=== PATIENT | female | born 1965 | race Two or more races ===

== ENCOUNTER 2018-02-14 21:57 | Emergency (ER) | payer MEDICAID ==
[2018-02-14 22:14] VITALS: RESP 16; O2SAT 97
--- NOTE | 2018-02-14 23:44 | ED PDOC ---
Lower Extremity Pain/Injury Time Seen by Provider: 02/14/18 22:35 Chief Complaint (Nursing): Lower Extremity Problem/Injury Chief Complaint (Provider): Lower Extremity Problem/Injury History Per: Patient History/Exam Limitations: no limitations Onset/Duration Of Symptoms: Gradual (x1 week) Current Symptoms Are (Timing): Still Present Additional Complaint(s): 52 year old [place] female arrives to ED with a complaint of swelling, redness, and pain with walking to her left foot that has gradually worsen in the last week. Patient believes she may have sustained insect bites while in a car and prescribed Bactrim, Bactroban, and Ibruprofen by her PMD with minimal impr ovement. Additionally, she reports an old surgical scar on her left hip developed some redness with pain as her affect foot began blistering. Otherwise, she denies any fever, chills, or drainage from surgical site. PMD: Dr. Donny Schilling Past Medical History Reviewed: Historical Data, Nursing Documentation, Vital Signs Vital Signs: Last Vital Signs Temp 97.6 F 02/14/18 22:14 Pulse 75 02/14/18 22:14 Resp 16 02/14/18 22:14 BP 134/86 02/14/18 22:14 Pulse Ox 97 02/14/18 22:14 - Medical History PMH: No Chronic Diseases - Surgical History Surgical History: Denies: No Surg Hx Other surgeries: left hip - Family History Family History: States: Unknown Family Hx - Social History Current smoker - smoking cessation education provided: No Alcohol: None Drugs: Denies - Home Medications Home Medications: Ambulatory Orders Medication Instructions Recorded Clotrimazole/Betamethasone 45 gm EXT BID #1 tube 02/15/18 [Lotrisone] - Allergies Allergies/Adverse Reactions: Allergies Allergy/AdvReac Type Severity Reaction Status Date / Time No Known Allergies Allergy Verified 02/14/18 22:17 Review of Systems ROS Statement: Except As Marked, All Systems Reviewed And Found Negative Constitutional: Negative for: Fever, Chills Musculoskeletal: Positive for: Foot Pain (left-sided with edema, blisters and redness), Other (left surgical scar with redness and pain on left hip (-) discharge) Physical Exam - Reviewed Nursing Documentation Reviewed: Yes Vital Signs Reviewed: Yes - Physical Exam Appears: Positive for: Non-toxic, No Acute Distress Head Exam: Positive for: ATRAUMATIC, NORMAL INSPECTION, NORMOCEPHALIC Skin: Positive for: Normal Color Eye Exam: Positive for: Normal appearance Cardiovascular/Chest: Positive for: Regular Rate, Rhythm Respiratory: Positive for: Normal Breath Sounds. Negative for: Respiratory Distress Pulses-Dorsalis Pedis (L): 2+ Gastrointestinal/Abdominal: Positive for: Other (11cm dimpled scar on left hip surface with mild erythema on surgical margin (-) fluctance or (-) wamrth) Extremity: Positive for: Other (left foot erythema, warmth, and induration with blisters on dorsum aspect; 2nd to 4th left foot digits with edema and erythema;). Negative for: Tenderness (or drainage/fluctance of left foot) Neurologic/Psych: Positive for: Alert, Oriented (x3). Negative for: Motor/Sensory Deficits - Laboratory Results Result Diagrams: 02/14/18 23:52 02/14/18 23:52 - ECG O2 Sat by Pulse Oximetry: 97 (RA) Pulse Ox Interpretation: Normal Medical Decision Making Medical Decision Making: Initial Impression: 52 year old [place] female with cellulitis of left foot; possible old surgical scar infection Initial Plan: * Labs * Toradol 30mg IV * Blood culture * Accucheck * XR left foot * XR left hip Time: 0010 --Patient was evaluated and cleared by podiatry. Most likely to be fungal related. Recommends Rx for Lotrisone. --XR of left hip and foot interpreted by provider: no fractures noted. Labs reviewed: no significant clinical abnormality. Accucheck: 82. Time: 0025 --Upon provider reevaluation, patient is medically stable and requires no further treatment in the ED at this time. Counseling was provided and all quest ions were answered regarding diagnosis and need for follow up with her PMD in 1- 2 days. There is agreement to discharge plan. Return if symptoms persist or worsen. Clinical Impression: Tinea Pedis Scribe Attestation: Documented by Elizabeth Khan, acting as a scribe for Tariq Delgadillo MD. Provider Scribe Attestation: All medical record entries made by the Scribe were at my direction and personally dictated by me. I have reviewed the chart and agree that the record accurately reflects my personal performance of the history, physical exam, medical decision making, and the department course for this patient. I have also personally directed, reviewed, and agree with the discharge instructions and disposition. Disposition - Clinical Impression Clinical Impression: Tinea pedis - Patient ED Disposition Is Patient to be Admitted: No Counseled Patient/Family Regarding: Studies Performed, Diagnosis, Need For Followup, Rx Given - Disposition Disposition: Routine/Home Disposition Time: 00:25 Condition: STABLE Prescriptions: Clotrimazole/Betamethasone [Lotrisone] 45 gm EXT BID #1 tube Instructions: Athlete's Foot, Ringworm Forms: [facility] (Setswana)
[2018-02-15 00:09] LABS: BASO % 0.6 % (0.0-2.0); EOS # 0.2 K/uL (0.0-0.7); EOS % 2.4 % (0.0-4.0); HEMOGLOBIN 12.5 g/dL (12.0-16.0); LYMPH # 2.3 K/uL (1.0-4.3); MEAN CELL VOLUME 91.9 fl (81.0-99.0); MEAN CORPUSCULAR HEMOGLOBIN 30.7 pg (27.0-31.0); MEAN CORPUSCULAR HGB CONC 33.4 g/dL (33.0-37.0); MEAN PLATELET VOLUME 8.2 fl (7.2-11.7); MONO # 0.4 K/uL (0.0-0.8); MONO % 5.4 % (0.0-10.0); NEUT # 4.1 K/uL (1.8-7.0); NEUT % 58.6 % (50.0-75.0); RBC 4.06 Mil/uL (3.80-5.20); RED CELL DISTRIBUTION WIDTH 13.8 % (11.5-14.5)
[2018-02-15] MEDS ORDERED: Povidone Iodine Oint 10% Foilpak UD ONE (00:13)
[2018-02-15 00:18] LABS: ALB/GLOB RATIO 1.1 (1.0-2.1); ALBUMIN 4.4 g/dL (3.5-5.0); ALT/SGPT 27 U/L (9-52); AST/SGOT 29 U/L (14-36); BLOOD UREA NITROGEN 24 mg/dl (7-17); CALCIUM 9.1 mg/dL (8.4-10.2); GFR NON-AFRICAN AMERICAN > 60
[2018-02-15 00:31] LABS: SQUAMOUS EPITHIAL 1 /hpf (0-5); URINE BILIRUBIN NEGATIVE (NEGATIVE); URINE BLOOD MODERATE (NEGATIVE); URINE CLARITY SLIGHTY-CLOUDY (Clear); URINE COLOR YELLOW (YELLOW); URINE GLUCOSE (UA) NEG (Normal); URINE LEUKOCYTE ESTERASE NEG Leu/uL (Negative); URINE PROTEIN NEGATIVE (NEGATIVE); URINE UROBILINOGEN 0.2-1.0 mg/dL (0.2-1.0)
[2018-02-15 00:32] LABS: URINE HYALINE CAST 0-2 /hpf (0-2)
--- NOTE | 2018-02-15 00:36 | CP.PCM.CON ---
History of Present Illness - History of Present Illness History of Present Illness: Podiatry Consult Note for Dr. Jules: 52 yo female patient, seen and evaluated for pain to her L foot. Patient states that she was walking last week and began to feel pain to her foot. She noticed a rash to the top of her left foot that was itchy. Patient believes she may have sustained insect bites while in a car and prescribed Bactrim, Bactroban, and Ibruprofen by her PMD with minimal improvement. Over the course of a week the pain got worse and she cannot wear any socks or shoes that rub on the area without feeling pain. She continuously wears open toed sandals. Patient denies N/V/F. Review of Systems - Constitutional Constitutional: As Per HPI Past Patient History - Past Social History Alcohol: None Drugs: Denies Meds Home Medications: Home Medication List Medication Instructions Recorded Confirmed Type Clotrimazole/Betamethasone 45 gm EXT BID #1 tube 02/15/18 Rx [Lotrisone] Allergies/Adverse Reactions: Allergies Allergy/AdvReac Type Severity Reaction Status Date / Time No Known Allergies Allergy Verified 02/14/18 22:17 Physical Exam - Constitutional Appears: Well, Non-toxic, No Acute Distress - Head Exam Head Exam: ATRAUMATIC, NORMOCEPHALIC - Extremities Exam Additional comments: LLE focused exam: Vascular: DP/PT 2/4, CFT <3 seconds, TG warm to warm, mild edema to the L forefoot Ortho: Tenderness/pain upon palpation of rash located to dorsal aspect of L foot, MMT 5/5 in all compartments, no pain upon calf compression Neuro: Gross and protective sensation intact Derm: Erythematous, scaling and xerotic rash noted to the dorsal aspect of the L forefoot to digits 2,3. No drainage, open lesion appreciated. Interdigital maceration to the 2nd interspace on the L. No cellulitis, no clinical signs of infection - Neurological Exam Neurological exam: Alert, Oriented x3 - Psychiatric Exam Psychiatric exam: Normal Affect, Normal Mood Results - Vital Signs Recent Vital Signs: Last Vital Signs Temp 97.6 F 02/14/18 22:14 Pulse 75 02/14/18 22:14 Resp 16 02/14/18 22:14 BP 134/86 02/14/18 22:14 Pulse Ox 97 02/15/18 00:27 - Labs Result Diagrams: 02/14/18 23:52 02/14/18 23:52 Labs: Laboratory Results - last 24 hr 02/14/18 02/14/18 23:52 23:52 WBC 7.0 RBC 4.06 Hgb 12.5 Hct 37.3 MCV 91.9 MCH 30.7 MCHC 33.4 RDW 13.8 Plt Count 322 MPV 8.2 Neut % (Auto) 58.6 Lymph % (Auto) 33.0 [place] % (Auto) 5.4 Eos % (Auto) 2.4 Baso % (Auto) 0.6 Neut # (Auto) 4.1 Lymph # (Auto) 2.3 [place] # (Auto) 0.4 Eos # (Auto) 0.2 Baso # (Auto) 0.0 Sodium 139 Potassium 4.2 Chloride 110 H Carbon Dioxide 18 L Anion Gap 15 BUN 24 H Creatinine 0.5 L Est GFR ( Amer) > 60 Est GFR (Non-Af Amer) > 60 Random Glucose 104 Calcium 9.1 Total Bilirubin 0.3 AST 29 ALT 27 Alkaline Phosphatase 64 Total Protein 8.3 H Albumin 4.4 Globulin 3.9 Albumin/Globulin Ratio 1.1 Assessment & Plan - Assessment and Plan (Free Text) Assessment: 52 yo female patient, seen and evaluated for pain to her L foot r/o bug bite vs tinea pedis Plan: Patient seen and evaluated Discussed patient in detail with Dr. Juels Afebrile, absent leuckocytosis Patient prescribed Lotrisone cream and told to apply twice daily Advised to continue with Abx, mupirocin ointment, and ibuprofen as prescribed by her PCP Discussed the possibility of contact dermatitis from sandals, since the strap of her sandals lies directly across area of irritation, discontinue use of sandals until area of irritation resolves Local wound care to L forefoot: Mupirocin, DSD - advised to keep covered at all times Thank you for the consult - Date & Time Date: 02/15/18 Time: 00:36
[2018-02-15 04:52] VITALS: BP 138/87; PULSE 70; TEMP 98.1
--- NOTE | 2018-02-15 11:09 | RAD ---
Date of service: 02/14/2018 PROCEDURE: Left Foot Radiographs. HISTORY: foot swelling pain COMPARISON: None. FINDINGS: BONES: Normal. No fracture.. There is a small plantar surface calcaneal enthesophyte. Very tiny posterior calcaneal enthesophyte also noted JOINTS: Minor degenerative osteoarthritis first MTP joint SOFT TISSUES: Normal. OTHER FINDINGS: None. IMPRESSION: No evidence of acute displaced fracture nor dislocation. Minor degenerative changes 1st MTP joint..
--- NOTE | 2018-02-16 08:03 | RAD ---
Date of service: 02/14/2018 PROCEDURE: LEFT HIP WITH PELVIS RADIOGRAPHS HISTORY: pain COMPARISON: None available. TECHNIQUE: Frontal views the left hip and pelvis been submitted for interpretation as well as frog-leg lateral view left hip. FINDINGS: There is no fracture dislocation identified at the left hip joint. The pelvic ring is intact. Limited degenerative change are present the bilateral sacroiliac and hip joints. Pubic bones are intact including pubic symphysis. Iliac bones appear unremarkable as the sacrum including sacral arcades. The proximal left femur is deformed with thin disc cortical margins in the periphery from the level of the intertrochanteric space to the visualize mid diaphysis.. The etiology of this finding is unclear. Further, the contour of the proximal left left femurs borders is also straight rather than gently curved as one approaches the lesser trochanter as the contralateral right femur exhibits. Etiologies findings unclear. This may be postoperative or posttraumatic appearance. Clinically correlate further. IMPRESSION: No acute fracture dislocation left hip joint or the pelvic ring. Degenerative changes are mild at the bilateral sacroiliac and hip joints. A deformity of the proximal left femur is identified throughout the diaphysis as imaged. Consider possible nuclear bone scan or left femur MRI for added characterization, if not already evaluated.
== END 2018-02-15 00:55 | disposition home or self-care (01) ==
LOC: H.ER 21:57
DX: B35.3 Tinea pedis (principal)
CPT/HCPCS: 73502; 73630; 80053; 81003; 81025; 82948; 85025; 87040; 96374; 99284; J1885

== ENCOUNTER 2018-02-16 11:14 | Emergency (ER) | payer MEDICAID ==
[2018-02-16 11:26] VITALS: BMI 35.2
[2018-02-16 11:36] VITALS: RESP 16
[2018-02-16] MEDS ORDERED: Sodium Chloride 0.9% 1,000 ML IV STA (15:20)
[2018-02-16 15:45] LABS: BASO % 0.6 % (0.0-2.0); EOS # 0.2 K/uL (0.0-0.7); EOS % 4.3 % (0.0-4.0); HEMOGLOBIN 13.4 g/dL (12.0-16.0); LYMPH # 1.5 K/uL (1.0-4.3); LYMPH % 33.1 % (20.0-40.0); MEAN CELL VOLUME 91.8 fl (81.0-99.0); MEAN CORPUSCULAR HGB CONC 33.8 g/dL (33.0-37.0); MEAN PLATELET VOLUME 7.8 fl (7.2-11.7); MONO # 0.3 K/uL (0.0-0.8); MONO % 6.8 % (0.0-10.0); NEUT # 2.5 K/uL (1.8-7.0); NEUT % 55.2 % (50.0-75.0); NRBC % 0.1 % (0.0-0.0); RBC 4.31 Mil/uL (3.80-5.20); RED CELL DISTRIBUTION WIDTH 13.7 % (11.5-14.5); WHITE BLOOD COUNT 4.5 K/uL (4.8-10.8)
[2018-02-16] MEDS ORDERED: Povidone Iodine Topical 10% Sol ONE (16:35)
--- NOTE | 2018-02-16 16:35 | ED PDOC ---
HPI: Skin/Bite Injury Time Seen by Provider: 02/16/18 12:14 Chief Complaint (Nursing): Abnormal Skin Integrity Chief Complaint (Provider): Redness of left foot getting worse History Per: Patient History/Exam Limitations: no limitations Onset/Duration Of Symptoms: Days Current Symptoms Are (Timing): Still Present Quality Of Symptoms: Painful, Itching Additional Complaint(s): Pt was seen in ER 2 days ago for evaluation of redness on the right foot. Pt was taking bactrim at that time and states she is on day 10. Pt states the rash is worse. 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 PT states today she also has rash under breast. Pt states she has taken bactrim in the past with out issues. Rash under breast itchy. No similar in the past. Past Medical History Vital Signs: Last Vital Signs Temp 98 F 02/16/18 11:33 Pulse 72 02/16/18 11:33 Resp 16 02/16/18 11:33 BP 144/79 02/16/18 11:33 Pulse Ox 98 02/16/18 11:33 - Family History Family History: States: Unknown Family Hx - Home Medications Home Medications: Ambulatory Orders Medication Instructions Recorded Clotrimazole/Betamethasone 45 gm EXT BID #1 tube 02/15/18 [Lotrisone] Amoxicillin/Clavulanate [Augmentin 1 tab PO BID #20 tab 02/16/18 875 MG-125 MG] Clotrimazole 1% Cream [Lotrimin 1% 1 applic TOP BID #2 tube 02/16/18 CREAM] DiphenhydrAMINE [Benadryl] 50 mg PO Q6H PRN #20 cap 02/16/18 predniSONE [predniSONE Tab] 20 mg PO DAILY #12 tab 02/16/18 - Allergies Allergies/Adverse Reactions: Allergies Allergy/AdvReac Type Severity Reaction Status Date / Time No Known Allergies Allergy Verified 02/14/18 22:17 Review of Systems ROS Statement: Except As Marked, All Systems Reviewed And Found Negative Constitutional: Negative for: Fever, Chills Skin: Positive for: Rash Physical Exam - Reviewed Nursing Documentation Reviewed: Yes Vital Signs Reviewed: Yes - Physical Exam Appears: Positive for: Well, Non-toxic, No Acute Distress Head Exam: Positive for: ATRAUMATIC, NORMAL INSPECTION, NORMOCEPHALIC Skin: Positive for: Warm. Negative for: Normal Color (Erythematous rash with satelite lesion under bilateral breasts; (+) erythematous rash on the dorsal foot extending up ankle) Eye Exam: Positive for: Normal appearance ENT: Positive for: Normal ENT Inspection Neck: Positive for: Normal, Painless ROM Cardiovascular/Chest: Positive for: Regular Rate, Rhythm. Negative for: Chest Non Tender Respiratory: Positive for: Normal Breath Sounds. Negative for: Accessory Muscle Use, Respiratory Distress Back: Positive for: Normal Inspection Extremity: Positive for: Normal ROM Neurologic/Psych: Positive for: Alert, Oriented - Laboratory Results Result Diagrams: 02/16/18 15:30 02/16/18 15:30 - ECG O2 Sat by Pulse Oximetry: 98 Medical Decision Making Medical Decision Making: Rash under breast consistant with yeast - Clotrimazole cream Rash on foot - Use topical cream from previous visit and change antibiotic as per podiatry. WBC normal. Prednisone and benadryl for possible allergic reaction. Disposition - Clinical Impression Clinical Impression: Yeast infection of the skin, Allergic reaction - Patient ED Disposition Is Patient to be Admitted: No Counseled Patient/Family Regarding: Diagnosis, Need For Followup - Disposition Disposition: Routine/Home Disposition Time: 16:34 Condition: GOOD Prescriptions: Amoxicillin/Clavulanate [Augmentin 875 MG-125 MG] 1 tab PO BID #20 tab Clotrimazole 1% Cream [Lotrimin 1% CREAM] 1 applic TOP BID #2 tube DiphenhydrAMINE [Benadryl] 50 mg PO Q6H PRN #20 cap PRN Reason: Itching / Pruritus predniSONE [predniSONE Tab] 20 mg PO DAILY #12 tab Instructions: Yeast Infection (DC), Drug Allergy Forms: [employer] (Indonesian)
[2018-02-16 16:36] LABS: ALB/GLOB RATIO 1.1 (1.0-2.1); ALBUMIN 4.6 g/dL (3.5-5.0); ALT/SGPT 33 U/L (9-52); AST/SGOT 31 U/L (14-36); BLOOD UREA NITROGEN 17 mg/dl (7-17); CALCIUM 10.4 mg/dL (8.4-10.2); GFR NON-AFRICAN AMERICAN > 60
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
[2018-02-16 17:13] VITALS: BP 138/76; PULSE 68; TEMP 98.1; O2SAT 99
== END 2018-02-16 17:15 | disposition home or self-care (01) ==
LOC: H.ER 11:14
DX: L97.529 Non-pressure chronic ulcer of other part of left foot with unspecified severity (principal); T78.40XA Allergy, unspecified, initial encounter; Z79.899 Other long term (current) drug therapy; Z98.890 Other specified postprocedural states
CPT/HCPCS: 80053; 85025; 87040; 87070; 96360; 99284; J2930; J7030